=== PATIENT | female | born 1950 | race Caucasian/White ===

== ENCOUNTER 2019-09-08 21:18 | Emergency (ER) | payer MEDICARE, BC ==
[2019-09-08 21:24] VITALS: BP 145/102
--- NOTE | 2019-09-08 22:39 | ED ---
Throat Pain/Nasal Congestion - HPI Summary HPI Summary: The patient is a 69 y/o F presenting with left ear pressure and pain onset tonight. She reports that she had been suffering from some cold symptoms with body aches two days ago which have resolved. Today, she was at a family event and noticed pressure in the left ear. She then developed sinus congestion and a buzzing and percolation noise in the ear that caused pain. The pain and noise is intermittent, but she has also noticed bloody discharge since coming to the ED. She endorses a cough and sore throat but denies any fever or CP. She notes that opening her jaw aggravates the pain. Aching and sharp pain currently rated 6/10 in severity. She has used Excedrin to mild relief. Flu and pneumonia vaccines this year. No PMHx. Nonsmoker, occasional EtOH, no substance use. Medications reviewed. Allergies noted. - History of Current Complaint Chief Complaint: EDEarPain Time Seen by Provider: 09/08/19 22:31 Hx Obtained From: Patient Onset/Duration: Sudden Onset, Still Present Severity: Moderate Associated Signs And Symptoms: Positive: Sinus Discomfort Cough: Nonproductive - Allergies/Home Medications Allergies/Adverse Reactions: Allergies Allergy/AdvReac Type Severity Reaction Status Date / Time No Known Allergies Allergy Verified 09/08/19 21:24 PMH/Surg Hx/FS Hx/Imm Hx Endocrine/Hematology History: Denies: Hx Diabetes Cardiovascular History: Denies: Hx Hypercholesterolemia, Hx Hypertension Respiratory History: Denies: Hx Asthma - Surgical History Surgical History: None Surgery Procedure, Year, and Place: none Infectious Disease History: No Infectious Disease History: Denies: Traveled Outside the [place] in Last 30 Days - Family History Known Family History: Negative: Renal Disease, Respiratory Disease - Social History Alcohol Use: Occasionally Hx Substance Use: No Substance Use Type: Reports: None Hx Tobacco Use: No Smoking Status (MU): Never Smoked Tobacco Review of Systems Negative: Fever Positive: Sore Throat, Ear Ache - left, Other - "buzzing/percolating noise", blood discharge from left ear, sinus congestion Negative: Chest Pain Positive: Cough All Other Systems Reviewed And Are Negative: Yes Physical Exam - Summary Physical Exam Summary: Appearance: Well-appearing, Well-nourished, lying in bed comfortably Skin: Warm, dry, no obvious rash Eyes: sclera anicteric, no conjunctival pallor ENT: mucous membranes moist, pharynx appears normal, Left ear has no mastoid swelling or tenderness, canal is free of discharge or debris, the TM is opaque with abnormal light reflex Neck: Supple, nontender Respiratory: Clear to auscultation, no signs of respiratory distress Cardiovascular: Normal S1, S2. No murmurs. Normal distal pulses in tibial and radial bilaterally. Abdomen: Soft, nontender, normal active bowel sounds present Musculoskeletal: Normal, Strength/ROM Intact Neurological: A&Ox3, awake and alert, mentation is normal, speech is fluent and appropriate Psychiatric: affect is normal, does not appear anxious or depressed Triage Information Reviewed: Yes Vital Signs On Initial Exam: Initial Vitals Temp Pulse Resp BP Pulse Ox 98.6 F 67 48 145/102 99 09/08/19 21:20 09/08/19 21:20 09/08/19 21:20 09/08/19 21:20 09/08/19 21:20 Vital Signs Reviewed: Yes Procedures - Sedation Patient Received Moderate/Deep Sedation with Procedure: No Diagnostics - Vital Signs Vital Signs Temp Pulse Resp BP Pulse Ox 09/08/19 21:20 98.6 F 67 48 145/102 99 - Laboratory Lab Statement: Any lab studies that have been ordered have been reviewed, and results considered in the medical decision making process. EENT Course/Dx - Course Course Of Treatment: 69 y/o F presenting with sudden onset pressure in the left ear tonight that developed into pain with a buzzing and percolation noise and bloody discharge. Additionally c/o cough and sore throat but denies any fevers or CP. Physical exam reveals left ear with no mastoid swelling or tenderness, canal is free of discharge or debris, and the TM is opaque with abnormal light reflex. Patient will be placed on Augmentin. Patient understands and agrees with plan. Dx of otitis media of left ear. - Diagnoses Provider Diagnoses: Otitis media, left Discharge ED - Sign-Out/Discharge Documenting (check all that apply): Patient Departure - Patient will be discharged home. - Discharge Plan Condition: Good Disposition: HOME Prescriptions: Amoxicillin/Clavulanate TAB* [Augmentin TAB 875*] 875 mg PO BID #20 tab Patient Education Materials: Ear Infection (ED) Referrals: Care [facility] [Outside] - If Needed - Billing Disposition and Condition Condition: GOOD Disposition: Home - Attestation Statements Document Initiated by Leonides: Yes Documenting Scribe: Jailene Garcia Provider For Whom Leonides is Documenting (Include Credential): Dr. Oscar Hernadez MD Scribe Attestation: I, oziel Muhammaded for Dr. Oscar Hernadez MD on 09/09/19 at 0601. Scribe Documentation Reviewed: Yes Provider Attestation: The documentation as recorded by the Jailene jimenez accurately reflects the service I personally performed and the decisions made by me, Dr. Oscar Hernadez MD Status of Scribe Document: Viewed
[2019-09-08] MEDS ORDERED: Amoxicillin/Clavulanate TAB* 875 MG PO ONE (22:41)
== END 2019-09-08 22:58 | disposition home or self-care (01) ==
LOC: ED 21:18
DX: H66.92 Otitis media, unspecified, left ear (principal)
CPT/HCPCS: 99281; A9270-GY